=== PATIENT | female | born 1955 | race Caucasian/White ===

== ENCOUNTER → 2025-06-20 08:21 | Outpatient (REF) | payer MEDICARE, SELFPAY ==
--- OUTSIDE RECORDS SUMMARY | 2025-04-24 10:12 | XMS_ITS ---
Author Organization Parth Hilton III, MD Address [address] [place] [address] [place] [address] Care Team Providers Care Salesperson Terrazzo Tiles Name Role Phone Parth Hilton Primary Care Provider REASON FOR VISIT Rx request Social History Sex Assigned At : Social History Observation Description Sex Assigned At Female Encounters Encounter Location Date Provider Diagnosis Parth Hilton III, MD [address] [place] [address] [place] [address] 04/24/2025 Parth Hilton Plan Of Treatment Next Appt Details Provider Name:Parth Hilton, 08/14/2025 10:30:00 AM, [address] [place] [address] [place], [address], Provider Name:Parth Hilton, 01/06/2026 10:00:00 AM, [address] [place] [address] [place], [address], Progress Notes * Dominga DANIEL MDOB:1955 (69 yo F)Acc No.[id number]:04/24/2025 Patient: Nj Dominga MESSINA :1955 A ge:69 Y S ex:Female Address:[address] [place] [phone] * true * Date: Generated for Printi ng/Faxing/eTransmitting on: 0 06/20/2025 08:59 AM EDT
--- OUTSIDE RECORDS SUMMARY | 2025-04-24 10:34 | XMS_ITS ---
Author Organization Parth Hilton III, MD Address [address] [place] [address] [place] [address] Care Team Providers Care Spray Stainer Name Role Phone Parth Hilton Primary Care Provider [phone] Medications Medication SIG (Take, Route, Frequency, Duration) Notes Start Date End Date Status Ciprofloxacin HCl 500 MG 1 tablet Orally every 12 hrs for 7 days 04/24/2025 05/01/2025 Active Social History Sex Assigned At : Social History Observation Description Sex Assigned At Female Encounters Encounter Location Date Provider Diagnosis Parth Hilton III, MD [address] [place] [address] [place] [address] 04/24/2025 Parth Hilton Plan Of Treatment Medication Medication Name Sig Start Date Stop Date Notes Ciprofloxacin HCl 500 MG 1 tablet Orally every 12 hrs for 7 days 04/24/2025 05/01/2025 Next Appt Details Provider Name:Parth Hilton, 08/14/2025 10:30:00 AM, [address] [place] [address] [place], [address], Provider Name:Parth Hilton, 01/06/2026 10:00:00 AM, [address] [place] [address] [place], [address], Progress Notes * Dominga DANIEL MDOB:1955 (69 yo F)Acc No.[id number]:04/24/2025 Patient: Dominga THOMAS :1955 A ge:69 Y S ex:Female Address:[address] [place] [phone] * Refills Start Ciprofloxacin HCl Tablet, 500 MG, Orally, 14 Tablet, 1 tablet, every 12 hrs, 7 days, Refills=0 * true * Date: Generated for Tatiana muñoz/Ewa/Claudioitting on: 0 06/20/2025 08:59 AM EDT
--- OUTSIDE RECORDS SUMMARY | 2025-06-19 05:30 | XMS_ITS ---
Author Organization Parth Hilton III, MD Address [address] [place] [address] Care Team Providers Care Youth Minister Name Role Phone Parth Hilton Primary Care Provider Allergies Allergen (clinical drug ingredient) Drug/Non Drug Allergy documented on EMR Reaction Allergy Type Onset Date Status atorvastatin Lipitor Unknown Drug Allergy Acti ve Bleach bleach (uncoded) shortness of breath Allergy Active REASON FOR VISIT Clearance for Cataract surgery, Bilateral, Procedure to be done by [facility]on 07/02/2025, 07/16/2025, Recent mastectomy for breast cancer, Coronary artery disease, Hypertension, Lumbar radiculopathy, Obesity, Arthritis. Shoulder, Bilateral breast cancer Medications Medication SIG (Take, Route, Frequency, Duration) Notes Start Date End Date Status Flonase Allergy Relief 50 MCG/ACT 1 spray in each nostril Nasally Twice a day 04/03/2025 Active Metoprolol Succinate ER 50 MG 1 tablet Orally Once a day Active Simvastatin 20 MG 1 tablet Orally in t he evening Active Anastrozole 1 MG TAKE ONE TABLET BY M OUTH EVERY DAY Oral Active predniSONE 20 MG 1 tablet with food o r milk Orally Once a day 04/30/2024 Active Adult Aspirin Low Strength 81 MG as directed Orally Active diazePAM 5 MG 1 tablet as needed Orally Once a day 07/08/2021 Active Isosorbide Mononitrate ER 30 MG TAKE TWO TABLETS BY MOUTH EVERY DAY Oral Active Fish Oil 1000 MG 1 capsule Orally Onc e a day Active Aleve PM 220-25 MG Orally A ctive Meclizine HCl 50 MG 1 tablet as needed Orally every eight hours prn vertigo 08/21/2021 Active Nitroglycerin 0.6 MG as directed Subling ual every 5 minutes prn angina 09/02/2021 Active Coenzyme Q-10 30 MG as directed Orally Active Flax Seed Oil 1000 MG as directed Orally Active Social History Tobacco Use: Social History Observation Description Date Details (start date - stop date) Former Smoker NA - NA Sex Assigned At : Social History Observation Description Sex Assigned At Female Tobacco Control (Standard) Question Answer Notes Tobacco use: Former smoker How long has it been since you last smoked? Aravind ter than 10 years Additional Findings: Tobacco non-user Ex-cigaret te smoker Vital Signs Temperature 97.9 degrees Fahrenheit 06/19/20 25 Heart Rate 56 /min 06/19/2025 Height 65 in 06/19/2025 Weight 209 lbs 06/19/2025 BMI 34.78 kg/m2 06/19/2025 Oximetry 95 % 06/19/2025 Encounters Encounter Location Date Provider Diagnosis Parth Hilton III, MD [address] [place] [address] [place] [address] 06/19/2025 Parth Hilton Pre-op exam Z01.818 ; Hyperlipidemia E78.5 ; Hypertension I10 ; Glaucoma H40.9 ; Osteoarthritis M19.90 ; CAD (coronary artery disease) I25.10 ; Breast cancer C50.919 and Athscl heart disease of [place] coronary artery w/o ang pctrs I25.10 Assessments Encounter Date Diagnosis (ICD Code) Assessment Notes Treat ment Notes Treatment Clinical Notes 06/19/2025 Pre-op exam (ICD-10 - Z01.818) She is given medical clearance for sequential bilateral cataract surgeries with the average risk of a patient her age. She seems healthy and well today. 06/19/2025 Hyperlipidemia (ICD-10 - E78.5) Her lipids are being checked periodically. No change in her regimen was necessary today. 06/19/2025 Hypertension (ICD-10 - I10) her blood pressure today is 140/74. She was doing well on the increased medication. No change in regimen was made today. She is free of symptooms. 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 06/19/2025 Osteoarthritis (ICD-10 - M19.90) She continues to have bilateral shoulder pain. She does not wish to have a surgical treatment at this time. She will continue to use ibuprofen judiciously with food and her stomach. I have explained the risks and benefits of chronic ibuprofen. 06/19/2025 CAD (coronary artery disease) (ICD-10 - I25.10) Since her last visit she has had no chest pain or shortness of breath. 06/19/2025 Breast cancer (ICD-10 - C50.919) There was no sign of recurrent disease either breast cancer. The surgical sites are well-healed. 06/19/2025 Athscl heart disease of [place] coronary artery w/o ang pctrs (ICD-10 - I25.10) She has had no recent angina, palpitations or syncope. Plan Of Treatment Medication Medication Name Sig Start Date Stop Date Notes Flonase Allergy Relief 50 MCG/ACT 1 spray in each nostril Nasally Twice a day 04/03/2025 Metoprolol Succinate ER 50 MG 1 tablet Orally Once a day Simvastatin 20 MG 1 tablet Orally in t he evening Anastrozole 1 MG TAKE ONE TABLET BY M OUTH EVERY DAY Oral predniSONE 20 MG 1 tablet with food o r milk Orally Once a day 04/30/2024 Adult Aspirin Low Strength 8 1 MG as directed Orally diazePAM 5 MG 1 tablet as needed O rally Once a day 07/08/2021 Isosorbide Mononitrate ER 30 MG TAKE TWO TABLETS BY MOUTH EVERY DAY Oral Fish Oil 1000 MG 1 capsule Orally Once a day Aleve PM 220-25 MG Orally Meclizine HCl 50 MG 1 tablet as needed O rally every eight hours prn vertigo 08/21/2021 Nitroglycerin 0.6 MG as directed Subling ual every 5 minutes prn angina 09/02/2021 Coenzyme Q-10 30 MG as directed Orally Flax Seed Oil 1000 MG as directed Orally Pending Test Test Name Order Date ECG 12 lead EKG 06/19/2025 Next Appt Details Follow Up: 2 Months, Reason: OV Provider Name:Parth Hilton, 08/14/2025 10:30:00 AM, [address] [place] [address] [address], [place], [address], Provider Name:Parth Hilton, 01/06/2026 10:00:[address], [address], Progress Notes * Dominga DANIEL MDOB:1955 (69 yo F)Acc No.[id number]:06/19/2025 Patient: Dominga THOMAS Provider: Malaika Hilton MD :1955 A ge:69 Y S ex:Female Date:06/19/2025 Address:[address] [place], [place] [phone] Subjective: * Chief Complaints: * C learance for Cataract surgery, BilateralProcedure to be done by [facility] on 07/02/2025, 07/16/2025Recent mastectomy for breast cancerCoronary artery diseaseHypertensionLumbar radiculopathyObesityArthritis. ShoulderBilateral breast cancer * HPI: C OVID-19 Screening: has anast arthralgias, no angina, dr gatica says cats need surg. She comes in for medical clearance for cataract surgery. Her blood pressure is currently stable. There is no sign of recurrent breast cancer. She has had bilateral mastectomies which were sequential. The recent one is well-healed. She has had no angina, shortness of breath or palpitations. Her back pain is minimaal. She was given medical clearance for sequential cataract surgery to begin in the near future. Questions H ave you had any new onset fever, chills, cough, congestion, sore throat, shortness of breath, muscle aches? N o * ROS: G eneral/Constitutional: pain o nly normal aches and pains. C hills d enies.?Fatigue a dmits. F ever d enies. E NT: Decreased hearing d enies. R espiratory: Cough d enies. C ardiovascular: Chest pain with exertion d enies. D yspnea on exertion?denies. S hortness of breath d enies. G astrointestinal: Constipation o ccasional. D ecreased appetite d enies. D iarrhea d enies. H eartburn o ccasional. N ausea d enies. R ectal bleeding d enies. V omiting d enies. H ematology: bruising d enies. p etechiae d enies. S wollen glands n one have been noted. G enitourinary: Frequent urination d enies. M usculoskeletal: Muscle aches d enies. P ainful joints d enies. S ciatica d enies. W eakness d enies. S kin: Itching d enies. R vinnie d enies. S kin lesion(s)?denies. N eurologic: Difficulty speaking d enies. D izziness d enies.?Headache d enies. L ow back pain d enies. P sychiatric: Depressed mood d enies. * Medical History: * Surgical History: l eft mastectomy 1981cardiac catherterizations x 3 cardiac catheterization 07/2014coronary artery bypass grafting [facility] 07/2014cardiac cath 4Right Mastectomy and sentinel node excision [id number] mastectomy - june 2024 No history * Hospitalization/Major Diagno stic Procedure: N o history * Family History: F ather: 80 yrs, diabetes mellitus, cardiac disease, diagnosed with DM. M other: 72 yrs, cardiac disease, diabetes mellitus, glaucoma, diagnosed with DM. S pouse: alive. 3 brother(s) , 4 sister(s) . 1 son(s) , 1 daughter(s) - healthy. . She is not aware of any other breast cancer in her family. She is not aware of any inherited cancer family syndromes. She is not aware of any family history of substance use disorder or addiction, or mental illness. * Social History: T obacco Use: T obacco Control (Standard) T obacco use: F ormer smoker H ow long has it been since you last smoked??Greater than 10 years A dditional Findings: Tobacco non-user E x-cigarette smoker S he is disabled. She is to Martin and has children. She was born in [place], [place]. * Medications: T akingSimvastatin 20 MG Tablet 1 tablet Orally in the evening Flax Seed Oil 1000 MG Capsule as directed Orally Coenzyme Q-10 30 MG Capsule as directed Orally Nitroglycerin 0.6 MG Tablet Sublingual as directed Sublingual every 5 minutes prn angina Meclizine HCl 50 MG Tablet 1 tablet as needed Orally every eight hours prn vertigo diazePAM 5 MG Tablet 1 tablet as needed Orally Once a day Adult Aspirin Low Strength 81 MG Tablet Dispersible as directed Orally Aleve PM 220-25 MG Tablet Orally Fish Oil 1000 MG Capsule 1 capsule Orally Once a day Isosorbide Mononitrate ER 30 MG Tablet Extended Release 24 Hour TAKE TWO TABLETS BY MOUTH EVERY DAY Oral predniSONE 20 MG Tablet 1 tablet with food or milk Orally Once a day Anastrozole 1 MG Tablet TAKE ONE TABLET BY MOUTH EVERY DAY Oral Metoprolol Succinate ER 50 MG Tablet Extended Release 24 Hour 1 tablet Orally Once a day Flonase Allergy Relief 50 MCG/ACT Suspension 1 spray in each nostril Nasally Twice a day Medication List reviewed and reconciled with the patientTaking Simvastatin 20 MG Tablet 1 tablet Orally in the evening Taking Flax Seed Oil 1000 MG Capsule as directed Orally Taking Coenzyme Q-10 30 MG Capsule as directed Orally Taking Nitroglycerin 0.6 MG Tablet Sublingual as directed Sublingual every 5 minutes prn angina Taking Meclizine HCl 50 MG Tablet 1 tablet as needed Orally every eight hours prn vertigo Taking diazePAM 5 MG Tablet 1 tablet as needed Orally Once a day Taking Adult Aspirin Low Strength 81 MG Tablet Dispersible as directed Orally Taking Aleve PM 220-25 MG Tablet Orally Taking Fish Oil 1000 MG Capsule 1 capsule Orally Once a day Taking Isosorbide Mononitrate ER 30 MG Tablet Extended Release 24 Hour TAKE TWO TABLETS BY MOUTH EVERY DAY Oral Taking predniSONE 20 MG Tablet 1 tablet with food or milk Orally Once a day Taking Anastrozole 1 MG Tablet TAKE ONE TABLET BY MOUTH EVERY DAY Oral Taking Metoprolol Succinate ER 50 MG Tablet Extended Release 24 Hour 1 tablet Orally Once a day Taking Flonase Allergy Relief 50 MCG/ACT Suspension 1 spray in each nostril Nasally Twice a day Medication List reviewed and reconciled with the patient * Allergies: L ipitorbleach: shortness of breathno[Allergies Verified] Objective: * Vitals: H t: 65, Wt:209, BMI:34.78, HR:56, Temp:97.9, Oxygen sat %:95, Ht-cm: 165.1, Wt- k.8. * Examination: G eneral Examination: GENERAL APPEARANCE: p leasant, well nourished, well developed, in no acute distress, calm and relaxed: overweight: woman. HEAD: a traumatic, normocephalic. EYES: e julia, perrla, anicteric, conjugate. EARS: n ormal. NOSE: s eptum intact. ORAL CAVITY: n ormal, unremarkable. NECK/THYROID: n o jugular venous distention, no carotid bruit, thyroid normal. LYMPH NODES: n o enlarged lymph nodes,spleen normal. SKIN: n o suspicious lesions, anicteric. HEART: n o clicks, gallops, murmurs, or rubs, regular rhythm, S1, S2 normal, no s3, or vascular bruits. LUNGS: c lear to auscultation . BREASTS: B ilateral mastectomy scars well healed without sign of recurrence. ABDOMEN: b owel sounds normal, no ascites, no organomegaly, no mass. RECTAL EXAM: n ot examined. MUSCULOSKELETAL: e xtremities unremarkable, no clubbing, cyanosis or edema, Pain to range of motion and elevation of left shoulder. PERIPHERAL PULSES: n ormal. NEUROLOGIC: a lert and oriented, cranial nerves 2-12 grossly intact, deep tendon reflexes 2+ symmetrical, motor strength normal upper and lower extremities, sensory exam intact. PSYCH: a lert, oriented. Assessment: * Assessment: 1. P re-op exam - Z01.818 (Primary) N otes :She is given medical clearance for sequential bilateral cataract surgeries with the average risk of a patient her age. She seems healthy and well today. 2 . H yperlipidemia - E78.5 N otes :Her lipids are being checked periodically. No change in her regimen was necessary today. 3 . H ypertension - I10 N otes :her blood pressure today is 140/74. She was doing well on the increased medication. No change in regimen was made today. She is free of symptooms. 4 . 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 5 . O steoarthritis - M19.90 N otes :She continues to have bilateral shoulder pain. She does not wish to have a surgical treatment at this time. She will continue to use ibuprofen judiciously with food and her stomach. I have explained the risks and benefits of chronic ibuprofen. 6 . C AD (coronary artery disease) - I25.10 N otes :Since her last visit she has had no chest pain or shortness of breath. 7 . B reast cancer - C50.919 N otes :There was no sign of recurrent disease either breast cancer. The surgical sites are well-healed. 8 . A thscl heart disease of [place] coronary artery w/o ang pctrs - I25.10? Notes :She has had no recent angina, palpitations or syncope. Plan: * Treatment: 2. O thers Continue Simvastatin Tablet, 20 MG, 1 tablet, Orally, in the evening; C ontinue Flax Seed Oil Capsule, 1000 MG, as directed, Orally; C ontinue Coenzyme Q-10 Capsule, 30 MG, as directed, Orally; C ontinue Nitroglycerin Tablet Sublingual, 0.6 MG, as directed, Sublingual, every 5 minutes prn angina; C ontinue Meclizine HCl Tablet, 50 MG, 1 tablet as needed, Orally, every eight hours prn vertigo; C ontinue diazePAM Tablet, 5 MG, 1 tablet as needed, Orally, Once a day; C ontinue Adult Aspirin Low Strength Tablet Dispersible, 81 MG, as directed, Orally; C ontinue Aleve PM Tablet, 220-25 MG, Orally; C ontinue Fish Oil Capsule, 1000 MG, 1 capsule, Orally, Once a day;?Continue Isosorbide Mononitrate ER Tablet Extended Release 24 Hour, 30 MG, TAKE TWO TABLETS BY MOUTH EVERY DAY, Oral; C ontinue predniSONE Tablet, 20 MG, 1 tablet with food or milk, Orally, Once a day; C ontinue Anastrozole Tablet, 1 MG, TAKE ONE TABLET BY MOUTH EVERY DAY, Oral; C ontinue Metoprolol Succinate ER Tablet Extended Release 24 Hour, 50 MG, 1 tablet, Orally, Once a day; C ontinue Flonase Allergy Relief Suspension, 50 MCG/ACT, 1 spray in each nostril, Nasally, Twice a day. * Procedure Codes: 9 4760 MEASURE BLOOD OXYGEN LEVEL * Preventive Medicine: Counseling: C are goal follow-up plan: Counseling for abnormal BMI given Y es Above Normal BMI Follow-up D ietary management education, guidance, and counseling, Dietary needs education, Exercise promotion: strength training, Exercise promotion: stretching, Feeding regime, Giving encouragement to exercise, Lifestyle education regarding diet, Nutrition / feeding management, Nutrition therapy, Prescribed activity/exercise education, Prescribed diet education, Prescribed dietary intake, Special diet education, Weight monitoring , Intervention, Order not done: Medical or Other reason not done S moking/Tobacco Use Patient counseled on the dangers of tobacco use and urged to quit. 0 06/19/2025 * Follow Up: 2 Months (Reason: OV) * Images: * Sign off status: Completed true * Provider: Malaika Hilton MD Date: 0 06/19/2025 Generated for Carolini toni/Ewa/eTransmitting on: 0 06/20/2025 09:00 AM EDT History and Physical Notes * HPI (History of Present Illness) Category Sub-Category Detail Notes COVID-19 Screening Questions Have you had any new onset fever, chills, cough, congestion, sore throat, shortness of breath, muscle aches?: No Examination Category Sub-Category Detail Notes General Examination GENERAL APPEARANCE: pleasant , well nourished, well developed, in no acute distress, calm and relaxed: overweight: woman HEAD: atraumatic, normocep halic EYES: eomi, perrla, anicte sharon, conjugate EARS: normal NOSE: septum intact NECK/THYROID: no jugular venous di stention, no carotid bruit, thyroid normal HEART: no clicks, gallops, murmurs, or rubs, regular rhythm, S1, S2 normal, no s3, or vascular bruits LUNGS: clear to auscultatio n ABDOMEN: bowel sounds normal, no ascites, no organomegaly, no mass NEUROLOGIC: alert and oriented, cranial nerves 2-12 grossly intact, deep tendon reflexes 2+ symmetrical, motor strength normal upper and lower extremities, sensory exam intact SKIN: no suspicious lesion s, anicteric PERIPHERAL PULSES: normal BREASTS: Bilateral mastectomy scars well healed without sign of recurrence MUSCULOSKELETAL: extremities unremark able, no clubbing, cyanosis or edema, Pain to range of motion and elevation of left shoulder LYMPH NODES: no enlarged lymph no eric,spleen normal RECTAL EXAM: not examined PSYCH: alert, oriented ORAL CAVITY: normal, unremarkable
--- NOTE | 2025-06-20 08:27 | ECG_ITS ---
Test Reason : preop Blood Pressure : */* mmHG Vent. Rate : 55 BPM Atrial Rate : 55 BPM P-R Int : 188 ms QRS Dur : 94 ms QT Int : 476 ms P-R-T Axes : 49 3 23 degrees QTcB Int : 455 ms Sinus bradycardia Nonspecific ST and T wave abnormality Abnormal ECG No previous ECGs available Referred By: Parth Hilton Electronically Signed By: ANUPAM MITCHELL
--- OUTSIDE RECORDS SUMMARY | 2025-06-20 08:59 | XMS_ITS | Clinical Summary ---
Author Organization [facility] ity Address [address] [place] [address] Care Team Providers Care Embroidery Designer Name Role Phone Parth Hilton MD Primary Care Provider [phone] Medications isosorbide mononitrate (IMDUR) 30 mg 24 hr tablet TAKE TWO TABLETS BY MOUTH EVERY DAY 180 tablet 1 04/17/2025 Active Social History Tobacco Use Types Packs/Day Years Used Date Smoking Tobacco: Former Smokeless Tobacco: Former Alcohol Use Standard Drinks/Week Comments Not Currently 1 (1 standard drink = 0.6 oz pur e alcohol) Comments Unknown Sex and Gender Information Value Date Recorded Sex Assigned at Not on file Legal Sex Female 10:54 AM EST Gender Identity Not on file Sexual Orientation Not on file Obstetrics History Last Filed Vital Signs Vital Sign Reading Time Taken Comments Blood Pressure 130/88 06/18/2024 9:30 AM EDT Sitting R Arm Pulse 63 06/18/2024 9:30 AM EDT Temperature - - Respiratory Rate - - Oxygen Saturation - - Inhaled Oxygen Concentration - - Weight 95.3 kg (210 lb 1.6 oz) 06/18/2024 9:30 AM EDT Height 165.1 cm (5' 5 ) 06/18/2024 9:30 AM EDT Body Mass Index 34.96 06/18/2024 9:30 AM EDT Plan of Treatment Upcoming Encounters Date Type Department Care Team (Late st Contact Info) Description 08/06/2025 9:50 AM EDT Office Visit [facility] [address] [place] [phone] Justin Centeno MD [address] [place] [address] [address] [place] [address] Health Maintenance Due Date Last Done Comments Breast Cancer Screening 1955 COVID-19 Vaccine (#1) 1959 DTaP,Tdap,and Td Vaccines (1 - Tdap) 1973 Pneumococcal Vaccine: 50+ Ye ars (1 of 2 - PCV) 1973 Zoster Vaccines (1 of 2) 1973 Cholesterol Screening (Lipid Panel) 10/02/2022 Colorectal Cancer Screening: Colonoscopy 10/02/2022 Falls Risk Assessment 10/02/2022 Hepatitis C Screening 10/02/2022 Hypertension/CHF/CAD Annual BMP Blood Test 10/02/2022 Medicare Annual Wellness Visit 10/02/2022 Osteoporosis Screening (Bone Density Screening) 10/02/2022 Social Influencers of Health Screening 10/02/2022 Depression Screening 10/24/2024 Influenza Vaccine (#1) 2025 RSV Immunization Adult Patie nts (1 - 1-dose 75+ series) 2029 HIB Vaccines Aged Out No longer eligi ble based on patient's age to complete this topic HPV Vaccines Aged Out No longer eligi ble based on patient's age to complete this topic Hepatitis A Vaccines Aged Out No long er eligible based on patient's age to complete this topic Hepatitis B Vaccines Aged Out No long er eligible based on patient's age to complete this topic IPV Vaccines Aged Out No longer eligi ble based on patient's age to complete this topic MMR Vaccines Aged Out No longer eligi ble based on patient's age to complete this topic Meningococcal ACWY Vaccine Aged Out N o longer eligible based on patient's age to complete this topic Meningococcal B Vaccine Aged Out No l onger eligible based on patient's age to complete this topic RSV Immunization Patients Un watson 20 months Aged Out No longer eligible b ased on patient's age to complete this topic Varicella Vaccines Aged Out No longer eligible based on patient's age to complete this topic Insurance [employer] - [place] MEDICARE ADVANTAGE Care Teams Embroidery Designer Relationship Specialty Start Date End Date Parth Hilton MD PCP - General 12/18/12
--- OUTSIDE RECORDS SUMMARY | 2025-06-20 09:00 | XMS_ITS | Patient Health Record ---
Author Organization Parth Hilton III, MD Address [address] [address] Care Team Providers Care Tax Compliance Officer Name Role Phone Parth Hilton Primary Care Provider Allergies Allergen (clinical drug ingredient) Drug/Non Drug Allergy documented on EMR Reaction Allergy Type Onset Date Status atorvastatin Lipitor Unknown Drug Allergy Acti ve Bleach bleach (uncoded) shortness of breath Allergy Active Results Component Value Reference Range Notes PROFILE, FASTING (COMPREHENS OSMAN METABOLIC) Reviewed date:12/20/2024 09:29:02 AM Interpretation: Performing Lab: Notes/Report: CBC WITH AUTO DIFF Reviewed date:12/20/2024 09:28:52 AM Interpretation: Performing Lab: Notes/Report: Lipid Panel Reviewed date:12/20/2024 09:28:43 AM Interpretation: Performing Lab: Notes/Report: URINE DIP STICK Reviewed date:12/31/2024 10:09:20 AM Interpretation: Performing Lab: Notes/Report: SG 1.015 1.005 - 1.025 pH 5.0 5.0 - 9.0 BRENTON 70+ Negative - NIT Negative Negative - PRO 15 Negative - Trace GLU Negative Negative - KET Negative Negative - UBG 0.2 0.1 - 1.8 ANITA Negative 0.2 - 1.3 BLD Negative Negative - Reason For Referral No Information Medications Medication SIG (Take, Route, Frequency, Duration) Notes Start Date End Date Status Simvastatin 20 MG 1 tablet Orally in t he evening Active Anastrozole 1 MG TAKE ONE TABLET BY M OUTH EVERY DAY Oral Active predniSONE 20 MG 1 tablet with food o r milk Orally Once a day 04/30/2024 Active Isosorbide Mononitrate ER 30 MG TAKE TWO TABLETS BY MOUTH EVERY DAY Oral Active Fish Oil 1000 MG 1 capsule Orally Onc e a day Active Aleve PM 220-25 MG Orally A ctive Adult Aspirin Low Strength 81 MG as directed Orally Active diazePAM 5 MG 1 tablet as needed Orally Once a day 07/08/2021 Active Meclizine HCl 50 MG 1 tablet as needed Orally every eight hours prn vertigo 08/21/2021 Active Nitroglycerin 0.6 MG as directed Subling ual every 5 minutes prn angina 09/02/2021 Active Coenzyme Q-10 30 MG as directed Orally Active Flonase Allergy Relief 50 MCG/ACT 1 spray in each nostril Nasally Twice a day 04/03/2025 Active Flax Seed Oil 1000 MG as directed Orally Active Metoprolol Succinate ER 50 MG 1 tablet Orally Once a day Active Immunizations Vaccine Route Administration Date Status Comme nts Influenza IM Intramuscular 07/14/2015 Administered Pneumococcal Unknown 07/30/2014 Administered FLuzone HD PF Unknown 07/03/2021 Administered Influenza no Preserv 3 and > Unknown 07/27/2016 Administered Influenza, quad Unknown 07/11/2018 Administered COVID PFIZER Unknown 07/14/2022 Administered COVID PFIZER Unknown 10/07/2021 Administered PCV13 Unknown 12/29/2019 Administered COVID PFIZER Unknown 01/07/2021 Administered COVID PFIZER Unknown 01/28/2021 Administered Influenza, quad Unknown 06/26/2019 Administered Influenza, quad Unknown 06/01/2023 Administered Influenza, quad Unknown 06/30/2022 Administered COMIRNATY Pfizer-BioNTech Unknown 08/03/2023 Administer ed Comirnaty Pfizer COVID-19 12+ Unknown 08/03/2023 Administered Comirnaty Pfizer COVID-19 12+ Unknown 08/01/2024 Administered PCV20 Unknown 08/01/2024 Administered COVID Pfizer Bivalent Unknown 07/14/2022 Administered Flu-IIv3 Unknown 07/18/2024 Administered Social History Tobacco Use: Social History Observation Description Date Details (start date - stop date) Former Smoker NA - NA Sex Assigned At : Social History Observation Description Sex Assigned At Female Tobacco Control (Standard) Question Answer Notes Tobacco use: Former smoker How long has it been since you last smoked? Grea ter than 10 years Additional Findings: Tobacco non-user Ex-cigaret te smoker AUDIT-C (Standard) Question Answer Notes Did you have a drink containing alcohol in the p ast year? No Points 0 Interpretation Negative Problems Problem Type SNOMED Code ICD Code Onset Dates Problem Status W/U Status Risk Notes Problem 6014006 Former smoker (Z87.891) Active confirmed She is highly motivated not to smoke. We have discussed prevention of relapse an time of illness or stress. Problem 98325794 Hyperlipidemia (E78.5) Active confirmed Her lipids are being checked periodically. No change in her regimen was necessary today. Problem 460295264681971 Obesity (BMI 30.0-34.9) (E66.9) Active confirmed Since her last visit she has gained 3 pounds and her body mass index is 34.78. We have discussed her weight loss strategy. We discussed lifestyle modifications. We made a plan to lose weight at a rate of one half of a pound per week. Problem 191493103 Lumbar radiculopathy (M54.16) Active confirmed She will rest and use a heating pad and refrain from her current exercises. She will concentrated on upper body strengthening for now. Problem 24967583 Hypertension (I10) Active confirmed her blood pressure today is 140/74. She was doing well on the increased medication. No change in regimen was made today. She is free of symptooms. Problem 258486043 Breast cancer (C50.919) Active confirmed There was no sign of recurrent disease either breast cancer. The surgical sites are well-healed. Problem 070105227 Malignant neoplasm of lower-outer quadrant of right female breast (C50.511) Active confirmed This is a recen t diagnosis. She is under the care of breast surgery at [facility]. A modified radical mastectomy is pending. Problem 20396978 Other chronic pain (G89.29) Active confirmed Problem 66391066 Epigastric pain (R10.13) Active confirmed The pain is unchanged. The blood work is unremarkable. A CT scan will be ordered. Problem Essential hypertension (96533568) Essential hypertension (I10) Active confirmed Her blood pressure is 120/76 no change in her regimen as needed. Problem 99595822 Glaucoma (H40.9) Active confirmed CC student assistant regularly and her pressures are controlled. Problem 7098135 Psoriasis (L40.9) Active confirmed Her psoriasis i s very mild and requires no additional treatment today. Problem 324940374 Osteoarthritis (M19.90) Active confirmed She continues t o have bilateral shoulder pain. She does not wish to have a surgical treatment at this time. She will continue to use ibuprofen judiciously with food and her stomach. I have explained the risks and benefits of chronic ibuprofen. Problem Personal history of primary malignant neoplasm of breast (134254299) History of breast cancer (Z85.3) Active confirmed The mastectomy site was free of relapse in the remaining breast is unremarkable. She will continue with breast self examination and annual mammography. Problem Atherosclerosis of coronary artery without angina pectoris (256604904360820 ) Athscl heart disease of [place] coronary artery w/o ang pctrs (I25.10) Active confirmed She has had n o recent angina, palpitations or syncope. Problem 56897138 CAD (coronary artery disease) (I25.10) Active confirmed Since her last visit she has had no chest pain or shortness of breath. Problem 043228531 Abnormal mammogram (R92.8) Active confirmed Problem 239072373 Malignant neoplasm of left female breast, unspecified estrogen receptor status, unspecified site of breast (C50.912) Active confirmed There is a remote history of invasive breast cancer treated with modified radical mastectomy years ago. Vital Signs Heart Rate 56 /min 06/19/2025 Temperature 97.9 degrees Fahrenheit 06/19/2025 Oximetry 95 % 06/19/2025 Blood pressure diastolic 76 mm Hg 04/03/2025 Height 65 in 06/19/2025 Blood pressure systolic 120 mm Hg 04/03/2025 Weight 209 lbs 06/19/2025 BMI 34.78 kg/m2 06/19/2025 Encounters Encounter Location Date Provider Diagnosis Parth Hilton III, MD [address] [place] [address] [place] [address] 07/10/2024 Parth Hilton Hyperlipidemia E78.5 ; Hypertension I10 ; Malignant neoplasm of left female breast, unspecified estrogen receptor status, unspecified site of breast C50.912 ; Malignant neoplasm of lower-outer quadrant of right female breast C50.511 ; Obesity (BMI 30.0-34.9) E66.9 ; Athscl heart disease of [place] coronary artery w/o ang pctrs I25.10 and Former smoker Z87.891 Parth Hilton III, MD [address] [place] [address] [place] [address] 08/13/2024 Parth Hilton Hyperlipidemia E78.5 ; Breast cancer C50.919 ; Obesity (BMI 30.0-34.9) E66.9 ; Hypertension I10 ; Former smoker Z87.891 ; Osteoarthritis M19.90 ; CAD (coronary artery disease) I25.10 and Lumbar radiculopathy M54.16 Parth Hilton III, MD [address] [place] [address] [place] [address] 11/01/2024 Parth Hilton Hyperlipidemia E78.5 ; CAD (coronary artery disease) I25.10 ; Hypertension I10 ; Former smoker Z87.891 ; Breast cancer C50.919 ; Psoriasis L40.9 and Obesity (BMI 30.0-34.9) E66.9 Parth Hilton III, MD [address] [place] [address] [place] [address] 11/21/2024 Parth Hilton Malignant neoplasm o f lower-outer quadrant of right female breast C50.511 ; Malignant neoplasm of left female breast, unspecified estrogen receptor status, unspecified site of breast C50.912 ; Hyperlipidemia E78.5 ; Hypertension I10 ; Former smoker Z87.891 ; Lumbar radiculopathy M54.16 and Athscl heart disease of [place] coronary artery w/o ang pctrs I25.10 Parth Hilton III, MD [address] [place] [address] [place] [address] 12/31/2024 Parth Hilton Hyperlipidemia E78.5 ; Breast cancer C50.919 ; Hypertension I10 ; Glaucoma H40.9 ; Former smoker Z87.891 ; Osteoarthritis M19.90 ; CAD (coronary artery disease) I25.10 ; Obesity (BMI 30.0-34.9) E66.9 and Lumbar radiculopathy M54.16 Parth Hilton III, MD [address] [place] [address] [place] [address] 04/03/2025 Parth Hilton Hyperlipidemia E78.5 ; CAD (coronary artery disease) I25.10 ; Breast cancer C50.919 ; Essential hypertension I10 ; Former smoker Z87.891 and Obesity (BMI 30.0-34.9) E66.9 Parth Hilton III, MD [address] [place] [address] [place] [address] 06/19/2025 Parth Hilton Pre-op exam Z01.818 ; Hyperlipidemia E78.5 ; Hypertension I10 ; Glaucoma H40.9 ; Osteoarthritis M19.90 ; CAD (coronary artery disease) I25.10 ; Breast cancer C50.919 and Athscl heart disease of [place] coronary artery w/o ang pctrs I25.10 Parth Hilton III, MD [address] [place] [address] [place] [address] 04/09/2025 Parth Hilton III, MD [address] [place] [address] [place] [address] 07/20/2024 Parth Hilton III, MD [address] [place] [address] [place] [address] 07/23/2024 Parth Hilton III, MD [address] [place] [address] [place] [address] 01/07/2025 Parth Hilton III, MD [address] [place] [address] [place] [address] 04/24/2025 Parth Hilton III, MD [address] [place] [address] [place] [address] 04/24/2025 Parth Hilton Assessments Encounter Date Diagnosis (ICD Code) Assessment Notes Treat ment Notes Treatment Clinical Notes 07/10/2024 Hyperlipidemia (ICD-10 - E78.5) Her lipids are currently stable and no change in her regimen was needed. A fasting lipid profile has been ordered prior to her next visit. 07/10/2024 Hypertension (ICD-10 - I10) Her blood pressure is stable at this time and no change in her regimen was needed. I have recommended lowering of blood pressure further. She does not wiish to take more medication. We have discussed a program of weight reduction and sodium restriction. 08/13/2024 Hyperlipidemia (ICD-10 - E78.5) Her lipids are currently stable and no change in her regimen was needed. A fasting lipid profile has been ordered prior to her next visit. 08/13/2024 Breast cancer (ICD-10 - C50.919) She now has bilateral mastectomies. She is healing well from the recent right modified radical mastectomy. There is no sign of relapse or distant disease. 11/01/2024 Hyperlipidemia (ICD-10 - E78.5) Her lipids are currently stable and no change in her regimen was needed. A fasting lipid profile has been ordered prior to her next visit. 11/01/2024 CAD (coronary artery disease) (ICD-10 - I25.10) Cardiac catheterization done May 07, 2024 shows the previously known coronary artery disease. The bypass grafts are functioning well in the myocardium seems well perfused. The entire catheterization report has been scanned into this record. She is medically cleared for surgery. 11/21/2024 Malignant neoplasm of lower-outer quadrant of right female breast (ICD-10 - C50.511) This is a recent diagnosis. She is under the care of breast surgery at [facility]. A modified radical mastectomy is pending. 11/21/2024 Malignant neoplasm of left female breast, unspecified estrogen receptor status, unspecified site of breast (ICD-10 - C50.912) There is a remote history of invasive breast cancer treated with modified radical mastectomy years ago. 12/31/2024 Hyperlipidemia (ICD-10 - E78.5) Her lipids are currently stable and no change in her regimen was needed. A fasting lipid profile has been ordered prior to her next visit. 12/31/2024 Breast cancer (ICD-10 - C50.919) She was recently found to have a carcinoma in the right breast treated with mastectomy. She is on adjuvant endocrine therapy with anastrozole to this time.She has a previous history of carcinoma left breast many years ago. There are no other cases of breast cancer in her family. She is under the care of medical oncology at the [facility]. 04/03/2025 Hyperlipidemia (ICD-10 - E78.5) Her lipids are being checked periodically. No change in her regimen was necessary today. 04/03/2025 CAD (coronary artery disease) (ICD-10 - I25.10) Since her last visit she has had no chest pain or shortness of breath. 06/19/2025 Hyperlipidemia (ICD-10 - E78.5) Her lipids are being checked periodically. No change in her regimen was necessary today. 06/19/2025 Pre-op exam (ICD-10 - Z01.818) She is given medical clearance for sequential bilateral cataract surgeries with the average risk of a patient her age. She seems healthy and well today. 07/10/2024 Malignant neoplasm of left female breast, unspecified estrogen receptor status, unspecified site of breast (ICD-10 - C50.912) There is a remote history of invasive breast cancer treated with modified radical mastectomy years ago. 08/13/2024 Obesity (BMI 30.0-34.9) (ICD-10 - E66.9) Since her last visit she has gained 5 pounds and her body mass index is 35.27. We have discussed her weight loss strategy. We discussed lifestyle modifications. We made a plan to lose weight at a rate of one half of a pound per week. 11/01/2024 Hypertension (ICD-10 - I10) Her blood pressure was very elevated at a dentist office earlier this week. After lying down supine for 20 minutes her blood pressure is 150/90. I have increased her metoprolol succinate to 50 mg once a day and given her a follow-up appointment in the near future. Her medication will be titrated to control the blood pressure. 11/21/2024 Hyperlipidemia (ICD-10 - E78.5) Her lipids are currently stable and no change in her regimen was needed. A fasting lipid profile has been ordered prior to her next visit. 12/31/2024 Hypertension (ICD-10 - I10) her blood pressure today is 140/74. She was doing well on the increased medication. No change in regimen was made today. She is free of symptooms. 04/03/2025 Breast cancer (ICD-10 - C50.919) There was no sign of recurrent disease either breast cancer. The surgical sites are well-healed. 06/19/2025 Hypertension (ICD-10 - I10) her blood pressure today is 140/74. She was doing well on the increased medication. No change in regimen was made today. She is free of symptooms. 07/10/2024 Malignant neoplasm of lower-outer quadrant of right female breast (ICD-10 - C50.511) This is a recent diagnosis. She is under the care of breast surgery at [facility]. A modified radical mastectomy is pending. 08/13/2024 Hypertension (ICD-10 - I10) Her blood pressure is 110/76 and no change in her regimen was needed. I have recommended lowering of blood pressure further. She does not wiish to take more medication. We have discussed a program of weight reduction and sodium restriction. 11/01/2024 Former smoker (ICD-10 - Z87.891) She is highly motivated not to smoke. We have discussed prevention of relapse an time of illness or stress. 11/21/2024 Hypertension (ICD-10 - I10) her blood pressure today is 140/74. She was doing well on the increased medication. No change in regimen was made today. She is free of symptooms. 12/31/2024 Glaucoma (ICD-10 - H40.9) 04/03/2025 Essential hypertension (ICD-10 - I10) Her blood pressure is 120/76 no change in her regimen as needed. 06/19/2025 Glaucoma (ICD-10 - H40.9) CC student assistant regularly and her pressures are controlled. 07/10/2024 Obesity (BMI 30.0-34.9) (ICD-10 - E66.9) Her body mass index is 34. She has gained 6 pounds since her last visit. We reviewed her diet and nutrition. We made a plan to lose weight at a rate of one half of a pound per week to a diet restricted in fat calories and sodium. 08/13/2024 Former smoker (ICD-10 - Z87.891) She is highly motivated not to smoke. We have discussed prevention of relapse an time of illness or stress. 11/01/2024 Breast cancer (ICD-10 - C50.919) She was recently found to have a carcinoma in the right breast treated with mastectomy. She is on adjuvant endocrine therapy with anastrozole to this time. 11/21/2024 Former smoker (ICD-10 - Z87.891) She is highly motivated not to smoke. We have discussed prevention of relapse an time of illness or stress. 12/31/2024 Former smoker (ICD-10 - Z87.891) She is highly motivated not to smoke. We have discussed prevention of relapse an time of illness or stress. 04/03/2025 Former smoker (ICD-10 - Z87.891) She is highly motivated not to smoke. We have discussed prevention of relapse an time of illness or stress. 06/19/2025 Osteoarthritis (ICD-10 - M19.90) She continues to have bilateral shoulder pain. She does not wish to have a surgical treatment at this time. She will continue to use ibuprofen judiciously with food and her stomach. I have explained the risks and benefits of chronic ibuprofen. 07/10/2024 Athscl heart disease of [place] coronary artery w/o ang pctrs (ICD-10 - I25.10) She has had no recent angina, palpitations or syncope. 08/13/2024 Osteoarthritis (ICD-10 - M19.90) She continues to have bilateral shoulder pain. She does not wish to have a surgical treatment at this time. She will continue to use ibuprofen judiciously with food and her stomach. I have explained the risks and benefits of chronic ibuprofen. 11/01/2024 Psoriasis (ICD-10 - L40.9) Her psoriasis is very mild and requires no additional treatment today. 11/21/2024 Lumbar radiculopathy (ICD-10 - M54.16) She will rest and use a heating pad and refrain from her current exercises. She will concentrated on upper body strengthening for now. 12/31/2024 Osteoarthritis (ICD-10 - M19.90) She continues to have bilateral shoulder pain. She does not wish to have a surgical treatment at this time. She will continue to use ibuprofen judiciously with food and her stomach. I have explained the risks and benefits of chronic ibuprofen. 04/03/2025 Obesity (BMI 30.0-34.9) (ICD-10 - E66.9) Since her last visit she has gained 3 pounds and her body mass index is 34.78. We have discussed her weight loss strategy. We discussed lifestyle modifications. We made a plan to lose weight at a rate of one half of a pound per week. 06/19/2025 CAD (coronary artery disease) (ICD-10 - I25.10) Since her last visit she has had no chest pain or shortness of breath. 07/10/2024 Former smoker (ICD-10 - Z87.891) 08/13/2024 CAD (coronary artery disease) (ICD-10 - I25.10) Cardiac catheterization done May 07, 2024 shows the previously known coronary artery disease. The bypass grafts are functioning well in the myocardium seems well perfused. The entire catheterization report has been scanned into this record. She is medically cleared for surgery. 11/01/2024 Obesity (BMI 30.0-34.9) (ICD-10 - E66.9) Since her last visit she has gained 5 pounds and her body mass index is 35.27. We have discussed her weight loss strategy. We discussed lifestyle modifications. We made a plan to lose weight at a rate of one half of a pound per week. 11/21/2024 Athscl heart disease of [place] coronary artery w/o ang pctrs (ICD-10 - I25.10) She has had no recent angina, palpitations or syncope. 12/31/2024 CAD (coronary artery disease) (ICD-10 - I25.10) Cardiac catheterization done May 07, 2024 shows the previously known coronary artery disease. The bypass grafts are functioning well in the myocardium seems well perfused. The entire catheterization report has been scanned into this record. She is medically cleared for surgery. 06/19/2025 Breast cancer (ICD-10 - C50.919) There was no sign of recurrent disease either breast cancer. The surgical sites are well-healed. 08/13/2024 Lumbar radiculopathy (ICD-10 - M54.16) She will rest and use a heating pad and refrain from her current exercises. She will concentrated on upper body strengthening for now. 12/31/2024 Obesity (BMI 30.0-34.9) (ICD-10 - E66.9) Since her last visit she has gained 3 pounds and her body mass index is 34.78. We have discussed her weight loss strategy. We discussed lifestyle modifications. We made a plan to lose weight at a rate of one half of a pound per week. 06/19/2025 Athscl heart disease of [place] coronary artery w/o ang pctrs (ICD-10 - I25.10) She has had no recent angina, palpitations or syncope. 12/31/2024 Lumbar radiculopathy (ICD-10 - M54.16) She will rest and use a heating pad and refrain from her current exercises. She will concentrated on upper body strengthening for now. Plan Of Treatment Pending Test Test Name Order Date PROFILE, FASTING (COMPREHENSIVE METABOLI C) 04/03/2025 CBC w DIFF 04/03/2025 CT ABD WITH CONTRAST 08/18/2023 Lipid Panel 04/03/2025 ECG 12 lead EKG 06/19/2025 MM tomosynthesis screening RT 02/01/2024 US abdomen complete 08/16/2023 Next Appt Details Provider Name:Parth Mayarne, 08/14/2025 10:30:00 AM, [address], [place], [address], Provider Name:Parth Lida, 01/06/2026 10:00:00 AM, [address] [facility] [address], [place], [address], Insurance Providers Payer Name Payer Address Payer Phone Subscriber Number Group Number Insured Name Patient Relationship to Insured Coverage Start Date Coverage End Date [employer] [address] [place], [place] [id number] Dominga Daniel Self - patient is the insured MEDICARE NGS [address] [facility] [place] [address] [id number] Dominga Daniel Self - patient is the insured Medical (General) History Medical History History ICD Code Coronary artery disease breast cancer 1983 node positive cmf hypertension hyperlipidemia psoriasis glaucoma adhesive capsulitis lelft shoulder osteoarthitis fascitis last unilateral mammogram 01/24/2013 @ [facility] overweight Breast Cancer - Mastectomy in June 2024 right breast cancer,[id number](0/3 sn) 15 [id number], [id number] 2,OncoDx 17 Surgical History Surgery Date(Month/Year) No history right mastectomy - june 2024 Right Mastectomy and sentinel node excis ion 2024-06-26 cardiac cath 04/2024 coronary artery bypass grafting [facility] 07/2014 cardiac catheterization 07/2014 cardiac catherterizations x 3 left mastectomy 1982 Hospitalization History Reason Date(Month/Year) No history
== END ==
LOC: HO.CARD 08:21
PROVIDERS: PCP Internal Medicine Medical Oncology; Visit Provider Internal Medicine Medical Oncology
DX: Z01.810 Encounter for preprocedural cardiovascular examination (principal)
CPT/HCPCS: 93005

== ENCOUNTER → 2025-06-20 08:27 | Outpatient (BNV) | payer MEDICARE, SELFPAY | PROVIDERS: PCP Internal Medicine Medical Oncology; Visit Provider Internal Medicine | DX: R00.1 Bradycardia, unspecified (principal) | CPT/HCPCS: 93010 ==